=== PATIENT | female | born 1975 | race Caucasian/White ===

== ENCOUNTER → 2018-04-27 07:29 | Outpatient (CLI) | payer SELFPAY ==
--- NOTE | 2018-04-27 07:15 | BI_ITS ---
MAMMOGRAPHY - BILATERAL SCREENING REASON FOR EXAM: Female, 42 years old. Routine annual screening examination. PERTINENT HISTORY: Non-contributory. TECHNIQUE: Digital bilateral breast kylie (3D mammographic acquisition) in the CC and MLO projections. 2-D mediolateral oblique (MLO) and craniocaudad (CC) views of both breasts were obtained. CAD: Full Field Digital Mammography with Computer Added Detection was performed. COMPARISON: Comparison is made with prior abdomen examination dated October 28, 2016. FINDINGS: Breast Composition: The breasts are heterogeneously dense, which may obscure small masses. There are no dominant masses or suspicious calcifications. No other significant abnormalities are identified. There has been no significant change since the prior study. BI/SCREENING MAMM (CAD), BILAT IMPRESSION: Stable bilateral screening mammogram. Yearly follow-up mammogram recommended. (A) ASSESSMENT CATEGORY: BIRADS Category 1: Negative. A letter regarding these results will be sent to the patient by the facility within 30 days. Approximately 10% of breast cancers are not detected by mammography. A normal mammogram should not delay biopsy of a clinically suspicious abnormality. [id number] Electronically Signed: Jorge Perera MD at 15:56 EST Tel [phone], Service support ,
== END ==
PROVIDERS: Family Provider Family Medicine; PCP Family Medicine; Visit Provider Obstetrics & Gynecology
DX: Z12.31 Encounter for screening mammogram for malignant neoplasm of breast (principal)
CPT/HCPCS: 77063; 77067

== ENCOUNTER → 2018-09-02 16:06 | Outpatient (CLI) | payer OTHER, SELFPAY ==
[2018-09-07 11:31] LABS: HPV Reflexed? NOT INDICATED
== END ==
PROVIDERS: Visit Provider Obstetrics & Gynecology
DX: Z12.4 Encounter for screening for malignant neoplasm of cervix (principal)
CPT/HCPCS: 88175; G0145

== ENCOUNTER → 2019-03-02 15:48 | Outpatient (CLI) | payer SELFPAY ==
--- NOTE | 2019-03-02 | SKTAG_PTH ---
PATIENT: LEONILA WASHINGTON LOC: [facility] U#:[id number] AGE/SX: 49/F ROOM: RE03/02/[address]: Dr. Eleanor Scott MD : 1975 BED: DIS: SPEC #: [id number] RECD: 03/02/19 15:48 STATUS: FRANCIS HIGUERA #: [id number] CARMITA: 03/02/19 00:[address]: Eleanor Lopez DEPT: SURGICAL PATHOLOGY RECD BY: Mamadou Du Tissues: Skin appendage, NOS Procedures: Surgery Specimen Level IV HEADER OPERATION: Skin tag removal PRE-OP DIAGNOSIS: Skin tag right vulva TISSUE SUBMITTED: Skin tag MICROSCOPIC DIAGNOSIS Right vulva skin lesion, excision: Fibroepithelial polyp, mildly inflamed. AM:yong 03/04/19 MICROSCOPIC DESCRIPTION Slides are reviewed. GROSS DESCRIPTION Received is one container labeled with the patient's name and not further designated. The specimen consists of a piece of olivo-white skin measuring 1 x 0.8 x 0.6 cm. The specimen is inked, bisected and submitted entirely in one cassette. / SJ:rg 03/03/19 TC:[facility]: [id number]
== END ==
PROVIDERS: Referring Provider Obstetrics & Gynecology; Visit Provider Obstetrics & Gynecology
DX: N84.3 Polyp of vulva (principal)
CPT/HCPCS: 88305

== ENCOUNTER → 2020-03-22 08:18 | Outpatient (CLI) | payer SELFPAY ==
[2020-03-22 10:01] LABS: Follicle Stimulating Hormone 15.8 mIU/mL
[2020-03-25 20:07] LABS: Testosterone, % Free 1.44 % (0.50-2.80); Testosterone, Free 0.71 ng/dL (0.10-0.85); Testosterone, Total 49 ng/dL (8-48)
== END ==
PROVIDERS: PCP Family Medicine; Referring Provider Obstetrics & Gynecology; Visit Provider Obstetrics & Gynecology
DX: E28.8 Other ovarian dysfunction (principal); N95.1 Menopausal and female climacteric states
CPT/HCPCS: 36415; 82533; 82627; 82670; 83001; 84402; 84403; 82626

== ENCOUNTER → 2021-02-28 07:52 | Outpatient (CLI) | payer SELFPAY ==
--- NOTE | 2021-02-28 07:57 | BI_ITS ---
MAMMOGRAPHY - BILATERAL SCREENING REASON FOR EXAM: Female, 45 years old. Routine annual screening examination. PERTINENT HISTORY: Grandmother with breast cancer. TECHNIQUE: Digital bilateral breast kale (3D mammographic acquisition) in the CC and MLO projections. 2-D mediolateral oblique (MLO) and craniocaudad (CC) views of both breasts were obtained. CAD: Full Field Digital Mammography with Computer Added Detection was performed. COMPARISON: Comparison is made with prior examination dated 04/27/2018. FINDINGS: Breast Composition: The breasts are heterogeneously dense, which may obscure small masses. There are no dominant masses or suspicious calcifications. Stable benign-appearing bilateral axillary lymph nodes. No other significant abnormalities are identified. There has been no significant change since the prior study. BI/SCRN MAMM (CAD)W/KALE BILAT IMPRESSION: Stable bilateral screening mammogram. Yearly follow-up mammogram recommended. (A) ASSESSMENT CATEGORY: BIRADS Category 2: Benign. A letter regarding these results will be sent to the patient by the facility within 30 days. Approximately 10% of breast cancers are not detected by mammography. A normal mammogram should not delay biopsy of a clinically suspicious abnormality. [id number] Electronically Signed: Jorge Perera MD at 8:43 EDT , Service support ,
== END ==
PROVIDERS: PCP Family Medicine; Referring Provider Obstetrics & Gynecology; Visit Provider Obstetrics & Gynecology
DX: Z12.31 Encounter for screening mammogram for malignant neoplasm of breast (principal)
CPT/HCPCS: 77063; 77067

== ENCOUNTER → 2022-12-29 | Outpatient (CLI) | payer SELFPAY ==
--- NOTE | 2022-12-29 07:28 | BI_ITS ---
MAMMOGRAPHY - BILATERAL SCREENING REASON FOR EXAM: Female, 47 years old. Routine annual screening examination. PERTINENT HISTORY: Grandmother with breast cancer. TECHNIQUE: Digital bilateral breast kale (3D mammographic acquisition) in the CC and MLO projections. 2-D mediolateral oblique (MLO) and craniocaudad (CC) views of both breasts were obtained. CAD: Full Field Digital Mammography with Computer Added Detection was performed. COMPARISON: Comparison is made with prior study dated February 28, 2021 and April 27, 2018. FINDINGS: Breast Composition: The breasts are extremely dense, which lowers the sensitivity of mammography. There are no dominant masses or suspicious calcifications. Stable fat-containing bilateral axillary lymph nodes. No other significant abnormalities are identified. There has been no significant change since the prior study. BI/SCRN MAMM (CAD)W/KALE BILAT IMPRESSION: Stable bilateral screening mammogram. Yearly follow-up mammogram recommended. (A) ASSESSMENT CATEGORY: BIRADS Category 2: Benign. A letter regarding these results will be sent to the patient by the facility within 30 days. Approximately 10% of breast cancers are not detected by mammography. A normal mammogram should not delay biopsy of a clinically suspicious abnormality. [id number] Electronically Signed: Jorge Perera MD at 12:06 EDT ,
== END | disposition home or self-care (01) ==
PROVIDERS: PCP Specialist; Referring Provider Specialist; Visit Provider Specialist
DX: Z12.31 Encounter for screening mammogram for malignant neoplasm of breast (principal); Z80.3 Family history of malignant neoplasm of breast
CPT/HCPCS: 77063; 77067